=== PATIENT | male | born 1940 | race Caucasian/White ===

== ENCOUNTER → 2018-03-26 | Outpatient (CLI) | payer MEDICARE, BC ==
[~2018-03-26] MED LIST: AMLO-111 PO; AMOX-559 PO; ASPI81TA94 PO; ATOR20TA22 PO; BENZ200C15 PO; CYCL10TA29 PO; DOXY-228 PO; FLU180SY11 IM; GLUC1TAB78 PO; LISI-374 PO; LISI20TA29 PO; LOR5/325 PO; MULT1CAP59 PO; MULT1TAB64 PO; NAPR220C12 PO; OMEG-24 PO; TAMS0.4C70 PO
--- NOTE | 2018-03-26 15:23 | RADIOLOGY IMAGING REPORT ---
[place] [facility] [place] NAME: Fabien Murillo : 1940 MR: [id number] V: [id number] EXAM DATE: ORDERING PHYSICIAN: JEREMIAS GARCÍA TECHNOLOGIST: Location: [facility] - [place] Patient: Fabien Murillo : 1940 Visit/Account:[id number] Date of Sevice: 03/26/2018 CAROTID HISTORY: aortic stenosis, diplopia COMPARISON: None. FINDINGS: Grayscale, duplex and color Doppler interrogation of the extracranial carotid and vertebral arteries was performed bilateral. On the right, peak systolic velocities within the common and internal carotid arteries are 82 and 78 cm/sec respectively. Small amount of hard plaques identified the right common carotid artery at the right carotid bulb. Antegrade flow within the common, internal and external carotid arteries as well as vertebral artery. ICA/CCA ratio 1.1. On the left, peak systolic velocities within the common and internal carotid arteries are 83 and 83 c m/sec respectively. Is mild intimal thickening left common carotid artery and a small amount of plaq ue at the left carotid bulb. Antegrade flow within the common, internal and external carotid arterie s as well as vertebral artery. ICA/CCA ratio 1.2. IMPRESSION: Small amount of plaque at the carotid bulbs although no hemodynamically significant lesions identifie d by velocity criteria Velocity criteria are extrapolated from diameter data as defined by the Society of Radiologists in [place] [facility] Consensus Conference Radiology 2003; 229;340-346 Report Dictated By: Leslie Patterson MD at 03/26/2018 3:15 PM Report E-Signed By: Leslie Patterson MD at 03/26/2018 3:16 PM WSN:[email or web address]
== END ==
LOC: US 00:34
PROVIDERS: ATTEND Nurse Practitioner Family
DX: I65.23 Occlusion and stenosis of bilateral carotid arteries (principal); I51.7 Cardiomegaly; I35.0 Nonrheumatic aortic (valve) stenosis
CPT/HCPCS: 93306; 93880

== ENCOUNTER → 2018-04-07 | Outpatient (CLI) | payer MEDICARE, BC ==
[~2018-04-07] MED LIST changes: +IOPAMIDOL 76% 75 ML INFUS BTL 75 ML ONE; +NS(*) 0.9% 50 ML BAG 50 ML ONE
--- NOTE | 2018-04-08 00:54 | RADIOLOGY IMAGING REPORT ---
FACILITY: [facility] PATIENT NAME: Fabien Murillo : 1940 MR: [id number] V: [id number] EXAM DATE: ORDERING PHYSICIAN: RHONDA DING TECHNOLOGIST: [place] [facility] [place] Patient: Fabien Murillo : 1940 Visit/Account:[id number] Date of Sevice: 04/07/2018 CT ANGIOGRAM HEAD W W/O CONTRA COMPARISONS: None ADDITIONAL PERTINENT HISTORY: Headaches with vision changes in the left eye only. Technique: Multiple axial images were obtained from the skull base to the vertex during the continuou s infusion of IV contrast. 2-D and 3-D reformatted were obtained off the axial source data. One of the following dose optimization techniques was utilized in the performance of this exam: Automated ex posure control; adjustment of the mA and/or kV according to the patient's size; or use of an iterativ e reconstruction technique. Specific details can be referenced in the facility's radiology CT exam operational policy. CONTRAST: 75 mL of Isovue-370 FINDINGS: Vascular variants: None Visualized vertebrobasilar system: Negative Distal internal carotid arteries: Cavernous internal carotid artery calcifications. Otherwise negativ e Internal carotid artery bifurcation: Negative A1 and M1 segments: Negative A2 and M2 segments: Negative Anterior communicating artery: Negative P1 segments: Negative Brain parenchyma: Negative Osseous structures: Negative Visualized paranasal sinuses and mastoid air cells: Mucosal thickening involving both maxillary sinu ses as well as the ethmoid air cells. IMPRESSION: 1. Normal CTA of the head except for mild atherosclerotic disease involving the cavernous internal ca rotid arteries. 2. No acute intracranial pathology. Report Dictated By: Isrrael Salamanca MD at 04/08/2018 12:45 AM Report E-Signed By: Isrrael Salamanca MD at 04/08/2018 12:51 AM WSN:[id number]
== END ==
LOC: CT 12:57
PROVIDERS: ATTEND Internal Medicine
DX: I65.23 Occlusion and stenosis of bilateral carotid arteries (principal)
CPT/HCPCS: 70496; J7050; Q9967

== ENCOUNTER 2018-04-16 19:19 | Emergency (ER) | payer MEDICARE, BC ==
[~2018-04-16 19:19] MED LIST changes: -IOPAMIDOL 76% 75 ML INFUS BTL 75 ML ONE; -NS(*) 0.9% 50 ML BAG 50 ML ONE
[2018-04-16] MEDS ORDERED: DOCUSATE SOD LIQ 100 MG/10 ML UDC PO ONE (19:30)
--- NOTE | 2018-04-16 19:38 | ER Report ---
History and Physical Time Seen By MD: 19:30 Hx. of Stated Complaint: PT HAS WAX BUILD UP IN BOTH EARS L>R. STATES HE TRIED TO FLUSH IT OUT AT HOME HPI/ROS CHIEF COMPLAINT: Cerumen impaction HISTORY OF PRESENT ILLNESS: This is a 77-year-old male who presents to the emergency department for a cerumen impaction. Patient states he had his annual physical exam yesterday, was noted that he had a large amount of cerumen in his left ear, suggested by his PCP to apply some baby oil to the area and then try to flush it, patient states he tried to do that today however when he tried irrigating flush it it's completely blocked the canal, patient has decreased hearing out of the left ear. No fevers or chills. No nausea or vomiting. No other complaints. No dizziness. REVIEW OF SYSTEMS: Respiratory: No cough, no dyspnea. Ears: As above. Cardiovascular: No chest pain, no palpitations. Gastrointestinal: No vomiting, no abdominal pain. Musculoskeletal: No back pain. Allergies: Coded Allergies: Penicillins (Verified Allergy, Severe, hives, shortness of breath, 10/09/17) Latex, Natural Rubber (Verified Allergy, Intermediate, rash, 10/09/17) sulfamethoxazole (Verified Adverse Reaction, Intermediate, sweats, achy, 10/09/17) Home Meds Active Scripts Amlodipine Besylate (AMLODIPINE BESYLATE) 5 Mg Tablet, 1 TAB PO QDAY, #90 TAB 3 Refills Prov:RHONDA DING MD 11/28/17 Lisinopril (LISINOPRIL) 20 Mg Tablet, 2 TAB PO DAILY, #180 TAB 4 Refills Prov:RHONDA DING MD 10/29/17 Atorvastatin Calcium (LIPITOR) 20 Mg Tablet, 1 TAB PO QDAY, #90 TAB 4 Refills Prov:ROXANA GALLEGO MD 04/10/17 Reported Medications Glucosamine/D3/Boswellia Zaira (Osteo Bi-Flex Tablet) 1,500 Mg-400 Unit-100 Mg Tablet, 1 TAB PO QDAY 10/09/17 Multivitamin (MULTI VITAMIN DAILY) 1 Each Tablet, 1 TAB PO QDAY 10/09/17 Tomball-3 Fatty Acids/Fish Oil (FISH OIL 1,200 MG SOFTGEL) 1 Each Capsule, 1 CAP PO QDAY 11/05/16 Aspirin (ASPIRIN) 81 Mg Tab.chew, 1 TAB PO QDAY 11/05/16 Past Medical/Surgical History The patient has a past medical and surgical history of hypertension, various orthopedic injuries, right shoulder surgery, wisdom teeth extraction, cataract removal. Reviewed Nurses Notes: Yes Smoking Status: Never Smoker Exposure to Second Hand Smoke?: No Hx Substance Use Disorder: No Hx Alcohol Use: No Constitutional Vital Sign - Last 24 Hours 04/16/18 19:23 Temp 98.2 Pulse 99 Resp 18 B/P (MAP) 186/88 Pulse Ox 92 O2 Delivery Room Air Physical Exam General Appearance: The patient is alert, has no immediate need for airway protection and no current signs of toxicity. Eyes: Pupils equal and round no injection. Ears: Complete occlusion of the left ear canal secondary to cerumen impaction. Small amount of irritation to the inferior aspect of the canal secondary to recent trauma from irrigation. Right ear canal 98% occluded with cerumen, unable to visualize the tympanic membrane. Respiratory: Chest is non tender, lungs are clear to auscultation. Cardiac: regular rate and rhythm, systolic murmur, no clicks or rubs. Gastrointestinal: Abdomen is soft and non tender, no masses, bowel sounds normal. Musculoskeletal: Neck: Neck is supple and non tender. Extremities have full range of motion and are non tender. Skin: No rashes or lesions. DIFFERENTIAL DIAGNOSIS: After history and physical exam differential diagnosis was considered for cerumen impaction. Medical Decision Making ED Course/Re-evaluation ED Course The patient was moved to room. History of possible obtained. Differential diagnoses were considered. After examination the patient determined that the patient has a left-sided cerumen impaction, Colace was applied to the ear canal, the ear was irrigated were able to remove a large amount of cerumen, was able to visualize the tympanic membrane, no erythema or injection, landmarks were noted. Same procedure for the right, patient tolerated well. The patient with precautions or concerns at this time and was discharged home. Encouraged to follow up with his primary care provider as scheduled. Return to the ER for any other concerns or worsening symptoms. Decision to Disposition Date: Apr 16, 2018 Decision to Disposition Time: 20:49 Depart Departure Latest Vital Signs Vital Signs Date Time Temp Pulse Resp B/P (MAP) Pulse Ox O2 Delivery O2 Flow Rate FiO2 11/7/18 19:23 98.2 99 18 186/88 92 Room Air Impression: Primary Impression: Cerumen impaction Condition: Improved Disposition: HOME OR SELF-CARE Referrals: RHONDA DING MD (PCP) Patient Instructions: Cerumen Impaction (ED) Additional Instructions: Drink plenty of water. Get plenty of rest. Follow-up with your primary care provider as scheduled. Return to a year for any other concerns or worsening symptoms. Problem Qualifiers Primary Impression: Cerumen impaction Laterality: bilateral Qualified Codes: H61.23 - Impacted cerumen, bilateral ABBEY OSULLIVAN PHOTORADIO OPERATOR- Apr 16, 2018 19:38
[2018-04-16 20:00] VITALS: BP 137/65
== END 2018-04-16 20:55 | disposition home or self-care (01) ==
LOC: ER 19:51
DX: H61.23 Impacted cerumen, bilateral (principal)
CPT/HCPCS: 99283; A9270

== ENCOUNTER → 2018-07-07 | Outpatient (CLI) | payer MEDICARE ==
[~2018-07-07] MED LIST changes: -AMLO-111 PO; +AMLO-125 PO; +PRED20TA6 PO
--- NOTE | 2018-07-07 10:38 | RADIOLOGY IMAGING REPORT ---
FACILITY: [facility] PATIENT NAME: Fabien Murillo : 1940 MR: [id number] V: [id number] EXAM DATE: ORDERING PHYSICIAN: RHONDA DING TECHNOLOGIST: Location: [facility] Patient: Fabien Murillo : 1940 Visit/Account:[id number] Date of Sevice: 07/07/2018 CT CHEST W/O CONTRAST History: Myasthenia gravis, diplopia TECHNIQUE: Contiguous axial images were performed through the chest to the level of the adrenal gla nds. No IV contrast was administered. Coronal and sagittal reformatting was also performed.Dose Lower ing Technique One of the following dose optimization techniques was utilized in the performance of this exam: Autom ated exposure control; adjustment of the mA and/or kV according to the patient's size; or use of an i terative reconstruction technique. Specific details can be referenced in the facility's radiology C T exam operational policy. COMPARISON STUDIES: CTA chest November 05, 2016. Lungs / Pleura: 3 mm calcified nodule posterior aspect of the right lower lobe best seen on image 3 09 of series 4 5 x 6 mm noncalcified nodule posterior aspect of the right lower lobe best seen on dwayne ge 202 series 4 appears unchanged Mediastinum/nodes: negative. Heart and vessels: Cardiac leads are in the right atrium and right ventricle. This calcification th e mitral annulus and calcifications at the root of the aorta. Coronary calcium occasions also noted Musculoskeletal / Body wall: Incompletely imaged is a right shoulder arthroplasty. There are exten sive spondylotic changes of the thoracic spine and visualized lower cervical spine Upper abdomen: There is a 1.5 x 1 cm ovoid hypoattenuating nodule left lobe the liver. CT Hounsfie ld units suggest this is a cyst. This appears stable when compared the prior study IMPRESSION: Calcified and noncalcified nodules in the right lower lobe have remained stable since November 05, 2016 1.5 cm hepatic cyst has remained stable No evidence of hilar mediastinal mass although study is limited due to lack of intravenous contrast Report Dictated By: Leslie Patterson MD at 07/07/2018 10:24 AM Report E-Signed By: Leslie Patterson MD at 07/07/2018 10:33 AM WSN:[email or web address]
== END ==
LOC: CT 00:35
PROVIDERS: ATTEND Internal Medicine
DX: R91.8 Other nonspecific abnormal finding of lung field (principal); N28.1 Cyst of kidney, acquired
CPT/HCPCS: 71250

== ENCOUNTER → 2018-11-07 | Outpatient (CLI) | payer MEDICARE ==
[~2018-11-07] MED LIST changes: +AMLO-127 PO; +PRE5 PO; +PYRI60TA9 PO
[2018-11-07 08:13] LABS: PLATELET COUNT, AUTOMATED 151 K/uL (150-450)
[2018-11-07 09:10] LABS: LDL CHOLESTEROL 73 mg/dl
== END ==
LOC: LAB 07:43
PROVIDERS: ATTEND Internal Medicine
DX: E78.00 Pure hypercholesterolemia, unspecified (principal); I10 Essential (primary) hypertension; G70.00 Myasthenia gravis without (acute) exacerbation
CPT/HCPCS: 36415; 81001; 82040; 82247; 82310; 82374; 82435; 82465; 82565; 82947; 83718; 84075; 84132; 84155; 84295; 84443; 84450; 84460; 84478; 84520; 85025

== ENCOUNTER → 2018-11-12 | Outpatient (CLI) | payer BC, MEDICARE | LOC: LAB 11:01 | PROVIDERS: ATTEND Internal Medicine | DX: R31.9 Hematuria, unspecified (principal) | CPT/HCPCS: 81001 ==

== ENCOUNTER → 2018-12-10 | Outpatient (CLI) | payer MEDICARE ==
--- NOTE | 2018-12-10 11:21 | EKG ---
FACILITY: [facility] - [place] PATIENT NAME: ZANE MOORE : [id number] MR: [id number] V: [id number] EXAM DATE: ORDERING PHYSICIAN: VANESSA HEART TECHNOLOGIST: Test Reason : Pre-op Blood Pressure : / mmHG Vent. Rate : 069 BPM Atrial Rate : 069 BPM P-R Int : 184 ms QRS Dur : 084 ms QT Int : 372 ms P-R-T Axes : 045 084 064 degrees QTc Int : 398 ms Normal sinus rhythm Normal ECG When compared with ECG of 05-NOV-2016 18:23, Vent. rate has increased BY 27 BPM Confirmed by VANESSA HEART ([id number]) on 12/10/2018 3:33:40 PM Referred By: Confirmed By:VANESSA HEART
== END ==
LOC: RESP 11:05
PROVIDERS: ATTEND Surgery
DX: Z95.0 Presence of cardiac pacemaker (principal)
CPT/HCPCS: 93005

== ENCOUNTER → 2019-01-02 | Outpatient (CLI) | payer MEDICARE ==
[~2019-01-02] MED LIST changes: +PRE1 PO
--- NOTE | 2019-01-02 11:07 | RADIOLOGY IMAGING REPORT ---
FACILITY: [facility] - [place] PATIENT NAME: Fabien Murillo : 1940 MR: [id number] V: [id number] EXAM DATE: ORDERING PHYSICIAN: VANESSA HEART TECHNOLOGIST: Location: [facility] Patient: Fabien Murillo : 1940 Visit/Account:[id number] Date of Sevice: 01/02/2019 Clinical history: Long-term prednisone use. Comparison: None. LUMBAR SPINE: The bone mineral density (BMD) measured from L1-L4 correlates with a Z-score of 2.6 and a T-score of 2.3 which is normal as defined by the World Health Organization. The corresponding risk of fracture in the lumbar spine is not increased compared with a young adult reference population. Bone mineral density values may be artificially increased due to sclerosis related to degenerative disease. HIP: Bone mineral density (BMD) measured in the left total hip region correlates with a Z-score of 0.2 and a T-score of -0.6 which is normal as defined by the World Health Organization. The corresponding ri sk of fracture in the hip is increased 1-2 times compared with a young adult reference population. Bone mineral density (BMD) measured in the left femoral neck correlates with a Z-score of 0.4 and a T -score of -0.8 which is normal as defined by the World Health Organization. The corresponding risk o f fracture in the hip is increased 1-2 times compared with a young adult reference population. Bone mineral density (BMD) measured in the left Femoral Neck region measures 0.968 g/cm2. Impression: 1. Lumbar spine: Normal. 2. Left total hip: Normal. 3. Left femoral neck: Normal 4. Left femoral neck Bone Mineral Density is 0.968 g/cm2 The next DEXA scan of this patient should include the following sites: Lumbar spine and left hip. FRAX? WHO Fracture Risk Assessment Tool link: http://www.shef.ac.uk/FRAX/tool.jsp?locationValue=9 PLEASE NOTE: 1) The World Health Organization defines low BMD as follows: T-score Normal > -1 Osteopenia < -1 and > -2.5 Osteoporosis < -2.5 without fractures Established osteoporosis < -2.5 with fractures 2) In general, you may wish to consider: Diagnosis Treatment Follow-up DEXA Normal BMD Prevention 2-3 years Osteopenia Prevention/therapy 1-2 years Osteoporosis Therapy Yearly 3) Fracture risk estimated from the T-score is more accurate for vertebral fractures (often spontane ous) than for hip fractures. Report Dictated By: Janeth Pascual MD at 01/02/2019 10:56 AM Report E-Signed By: Janeth Pascual MD at 01/02/2019 10:58 AM WSN:[email or web address]
== END ==
LOC: RAD 01:20
PROVIDERS: ATTEND Internal Medicine
DX: Z79.899 Other long term (current) drug therapy (principal); Z79.52 Long term (current) use of systemic steroids
CPT/HCPCS: 77080